=== PATIENT | female | born 1960 | race Caucasian/White ===

== ENCOUNTER → 2017-07-22 | Outpatient (CLI) | payer BC ==
--- NOTE | 2017-07-23 08:57 | MM ---
Reason for exam: screening (asymptomatic). Last mammogram was performed 1 year ago. History: Patient is postmenopausal and had first child at age 32. Benign u/S right breast localization of the right breast, April 13, 2013. Excisional biopsy of the right breast, 1996. Excisional biopsy of the left breast. Physical Findings: A clinical breast exam by your physician is recommended on an annual basis and results should be correlated with mammographic findings. MG Screening Mammo w CAD Bilateral CC and MLO view(s) were taken. Prior study comparison: July 09, 2016, bilateral MG screening mammo w CAD. May 31, 2015, bilateral MG 3d diag mammo w/cad ANGEL. The breast tissue is heterogeneously dense. This may lower the sensitivity of mammography. There are few typically benign round calcifications in the left breast. There is chronic nodularity in the right breast. There is no discrete abnormality. ASSESSMENT: Benign, BI-RAD 2 RECOMMENDATION: Routine screening mammogram of both breasts in 1 year.
== END | disposition home or self-care (01) ==
LOC: RADMAMWWP 16:25
PROVIDERS: ATTEND Family Medicine
DX: Z12.31 Encounter for screening mammogram for malignant neoplasm of breast (principal)

== ENCOUNTER → 2018-07-23 | Outpatient (CLI) | payer BC ==
--- NOTE | 2018-07-24 14:16 | MM ---
Reason for exam: screening (asymptomatic). Last mammogram was performed 1 year ago. History: Patient is postmenopausal and had first child at age 32. Benign u/S right breast localization of the right breast, April 13, 2013. Excisional biopsy of the right breast, 1996. Excisional biopsy of the left breast. Physical Findings: A clinical breast exam by your physician is recommended on an annual basis and results should be correlated with mammographic findings. MG 3D Screening Mammo W/Cad Bilateral CC and MLO view(s) were taken. Prior study comparison: July 22, 2017, bilateral MG screening mammo w CAD. July 09, 2016, bilateral MG screening mammo w CAD. The breast tissue is heterogeneously dense. This may lower the sensitivity of mammography. There is a stable benign appearing oval circumscribed right lower inner quadrant mass. No suspicious abnormality. Left middle depth lateral asymmetry appears similar to 2015. No significant changes when compared with prior studies. ASSESSMENT: Benign, BI-RAD 2 RECOMMENDATION: Routine screening mammogram of both breasts in 1 year.
== END | disposition home or self-care (01) ==
LOC: RADMAMWWP 12:59
PROVIDERS: ATTEND Family Medicine
DX: Z12.31 Encounter for screening mammogram for malignant neoplasm of breast (principal)
CPT/HCPCS: 77063; 77067

== ENCOUNTER → 2018-12-08 | Outpatient (CLI) | payer BC ==
--- NOTE | 2018-12-08 09:24 | CT ---
EXAMINATION TYPE: CT lumbar spine wo con DATE OF EXAM: 12/08/2018 COMPARISON: None HISTORY: 58-year-old female Chronic pain TECHNIQUE: Contiguous axial scanning of the lumbar spine without IV contrast. Coronal and sagittal re constructions performed. The SI joints were included and separately reconstructed in the coronal and sagittal plane. CT DLP: 1318.7 mGycm Automated exposure control for dose reduction was used. FINDINGS: Vertebral body heights are preserved and alignment is maintained. Mild degenerative disc disease with minimal disc height loss and disc bulging throughout. Hypertrophic facet arthropathy mid to lower lumbar spine. No large focal disc herniation or canal compromise seen. Bulging discs at L3-L4 and L4-L5 minimally to mildly narrow the spinal canal. On the right, changes within mild multilevel neuroforaminal narrowing. The left, changes result in mild to moderate neuroforaminal narrowing at L3-L4 and L4-L5 and mild at additional levels. No prevertebral or paravertebral soft tissue abnormality seen. The bilateral SI joints show vacuum phenomenon and mild degenerative spurring. Mild subchondral cysti c changes present on the right. No subarticular regions. IMPRESSION: 1. NO VERTEBRAL COMPRESSION COLLAPSE OR MALALIGNMENT. MILD MULTILEVEL DEGENERATIVE DISC DISEASE WE LL HYPERTROPHIC FACET ARTHROPATHY MID TO LOWER LUMBAR SPINE. 2. MINIMAL TO MILD SPINAL CANAL NARROWING AT L3-L4 AND L4-L5. VARIABLE MILD NEURAL FORAMINAL STENOSES OUTLINED ABOVE, MORE MILD TO MODERATE ON THE LEFT AT L3-L4 AND L4-L5. 3. MILD DEGENERATIVE CHANGE AT THE RIGHT GREATER THAN LEFT SI JOINTS. NO EROSIONS TO SUGGEST AN INFLA MMATORY SACROILIITIS.
== END ==
LOC: RADCTMAIN 08:03
PROVIDERS: ATTEND Family Medicine
DX: M54.9 Dorsalgia, unspecified (principal); G89.29 Other chronic pain; M12.9 Arthropathy, unspecified; M48.061 Spinal stenosis, lumbar region without neurogenic claudication; M47.9 Spondylosis, unspecified
CPT/HCPCS: 72131

== ENCOUNTER → 2019-08-19 | Outpatient (CLI) | payer BC ==
--- NOTE | 2019-08-23 08:59 | MM ---
Reason for exam: screening (asymptomatic). Last mammogram was performed 1 year and 1 month ago. History: Patient is postmenopausal and had first child at age 32. Benign u/S right breast localization of the right breast, April 13, 2013. Excisional biopsy of the right breast, 1996. Excisional biopsy of the left breast. Physical Findings: A clinical breast exam by your physician is recommended on an annual basis and results should be correlated with mammographic findings. MG 3D Screening Mammo W/Cad Bilateral CC and MLO view(s) were taken. Prior study comparison: July 23, 2018, bilateral MG 3d screening mammo w/cad. July 22, 2017, bilateral MG screening mammo w CAD. There are scattered fibroglandular densities. There is chronic nodularity in the right breast. Scar markers on bilateral breasts. No significant changes when compared with prior studies. ASSESSMENT: Benign, BI-RAD 2 RECOMMENDATION: Routine screening mammogram of both breasts in 1 year.
== END | disposition home or self-care (01) ==
LOC: RADMAMWWP 14:44
PROVIDERS: ATTEND Family Medicine
DX: Z12.31 Encounter for screening mammogram for malignant neoplasm of breast (principal)
CPT/HCPCS: 77063; 77067

== ENCOUNTER → 2019-08-23 | Outpatient (CLI) | payer BC ==
[2019-08-23 13:04] VITALS: BP 125/83; PULSE 63; RESP 16
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
== END | disposition home or self-care (01) ==
LOC: PNWHC3 12:23
PROVIDERS: ATTEND Anesthesiology
DX: M48.061 Spinal stenosis, lumbar region without neurogenic claudication (principal); M51.16 Intervertebral disc disorders with radiculopathy, lumbar region; Z79.1 Long term (current) use of non-steroidal anti-inflammatories (NSAID); Z79.899 Other long term (current) drug therapy
CPT/HCPCS: 99211

== ENCOUNTER 2019-09-29 08:38 | Day surgery (SDC) | payer BC ==
[2019-09-27 15:59] VITALS: BMI 34.0
[~2019-09-29 08:38] MED LIST: LACTATED RINGERS 1,000 ML IV SCH
[2019-09-29 08:56] VITALS: TEMP 97.3
[2019-09-29] MEDS ORDERED: LACTATED RINGERS 1,000 ML IV ONE (08:57)
[2019-09-29] MEDS ORDERED: LIDOCAINE 1% 20 ML VIAL (10MG/ML) FOR IV START INTRADERMA ONE (08:58)
[2019-09-29] MEDS ORDERED: MIDAZOLAM 2 MG/2 ML VIAL ONE (09:56)
[2019-09-29] MEDS ORDERED: fentaNYL (PF) 50 MCG/ML 2 ML AMP ONE (09:56)
[2019-09-29] MEDS ORDERED: methylPREDNISolone ACETATE 80 MG/ML 1 ML VIAL ONE (09:56)
[2019-09-29] MEDS ORDERED: IOPAMIDOL M200 10 ML VIAL ONE (09:56)
--- NOTE | 2019-09-29 10:19 | P.PCN ---
Date of Procedure: 09/29/19 Procedure(s) Performed: PREOPERATIVE DIAGNOSIS: Lumbar radiculopathy. Lumbar degenerative disc disease. Lumbar foraminal stenosis. POSTOPERATIVE DIAGNOSIS: Same as preop diagnosis. PROCEDURE 1. Transforaminal epidural steroid injection under fluoroscopic guidance at L3-4 bilateral (Fluoroscopy images stored on file in the radiology Department ) 2. Lumbar epidurogram : ANESTHESIA: Local with 1% lidocaine 3 ml , moderate sedation with intravenous Versed 2 mg and fentanyle 100 micrograms EBL: Minimal PROCEDURE INDICATION: The patient with low back pain and radiculopathy symptoms unresponsive to conservative treatment. PROCEDURE DESCRIPTION / TECHNIQUE: The patient was seen and identified in the preoperative area. Risks, benefits, complications, and alternatives were discussed with the patient. The patient agreed to proceed with the procedure and signed the consent. IV was started, and vital signs were stable. Patient was taken to the OR and time out was completed. The patient was placed in the prone position on procedure table and a pillow was placed under the abdomen to reduce lumbar lordosis. The lumbosacral area was prepped and draped in the usual sterile fashion. Critical pause was taken. Vital signs were closely monitored during the procedure. Conscious sedation was used during the procedure to decrease patient s anxiety. Using oblique fluoroscopy, the chin of the ``Minor dog at right L3-4 level was identified, and the skin and deeper tissues just below was localized with 1% lidocaine. Subsequently, a 22-gauge 3.5-inch spinal needle was advanced under a tunneled view fluoroscopic guidance just underneath the chin of the ``Minor dog at the right L3-4 . Under lateral fluoroscopy, the needle was then advanced to the posterior border of the right L3 4 interforaminal space. After negative aspiration of CSF and blood and with no paresthesias, 1 mL Isovue 200 contrast dye was injected excellent epidurogram and outlining of the nerve root Subsequently, then the block solution containing 40 mg Depo-medrol and 1 mL of Lidocaine 1% was injected. Needle was removed and the same procedure was repeated at the left L3-4 level (s). At the end of the procedure, skin was cleansed, and bandages were applied. COMPLICATIONS:none DISPOSITION / PLANS: The patient was placed in a supine position and transferred to the recovery area in a stable condition for observation. There was no evidence of lower extremity motor or sensory deficit after the procedure. Patient was discharged from the recovery room after meeting discharge criteria. Home discharge instructions were given to the patient by the staff. The patient was reexamined prior to discharge.
[2019-09-29] MEDS ORDERED: IV FLUID CONTINUATION 1,000 ML IV ONE ×2 (10:21)
[2019-09-29 10:24] VITALS: RESP 16
--- NOTE | 2019-09-29 10:38 | FL ---
EXAMINATION TYPE: FL guided pain mgmt statistic DATE OF EXAM: 09/29/2019 HISTORY: Pain Lion lumbar transforaminal epidural steroid injection. 8 sec fl. 2 images scanned
[2019-09-29 10:42] VITALS: BP 106/70; PULSE 58
== END 2019-09-29 11:16 | disposition home or self-care (01) ==
LOC: ORPAIN 08:38
PROVIDERS: ATTEND Specialist
DX: M51.16 Intervertebral disc disorders with radiculopathy, lumbar region (principal); M48.061 Spinal stenosis, lumbar region without neurogenic claudication; Z78.0 Asymptomatic menopausal state
CPT/HCPCS: 64483; J2250; J1040; J3010; Q9966; 99152

== ENCOUNTER 2020-08-23 08:47 | Day surgery (SDC) | payer BC ==
[2020-08-21 09:42] VITALS: BMI 33.6
[~2020-08-23 08:47] MED LIST changes: +LIDOCAINE 1% (10MG/ML) FOR IV START INTRADERMA PRN
[2020-08-23 09:17] VITALS: RESP 16; TEMP 96.7
[2020-08-23] MEDS ORDERED: PROPOFOL 10 MG/ML 20 ML VIAL IV ONE (09:57)
--- NOTE | 2020-08-23 10:09 | P.PCN ---
Date of Procedure: 08/23/20 Procedure(s) Performed: BRIEF HISTORY: Patient is a 60-year-old pleasant white female scheduled for an elective colonoscopy as a part of screening for colon rectal neoplasia. His family history of colon cancer diagnosed in a paternal uncle at age 70. PROCEDURE PERFORMED: Colonoscopy snare polypectomy. PREOPERATIVE DIAGNOSIS: Screening for colon cancer and family history of colon cancer. IV sedation per Anesthesia. PROCEDURE: After informed consent was obtained, the patient, was brought into the endoscopy unit. IV sedation was administered by Anesthesia under continuous monitoring. Digital rectal examination was normal. Initially the Olympus CF-160 flexible video colonoscope was then inserted in the rectum, gradually advanced into the cecum without any difficulty. Careful examination was performed as the scope was gradually being withdrawn. Ileocecal valve and the appendiceal orifice were visualized and appeared normal. Prep was excellent. Mucosa of the cecum, ascending colon appeared normal. The transverse colon there was a 2 cm broad- based polyp removed by snare polypectomy. Rest of the, transverse colon, descending colon, sigmoid colon, and rectum appeared normal. Retroflexion was performed in the rectum and no lesions were seen. The patient tolerated the procedure well. IMPRESSION: 2 cm broad-based proximal transverse colon polyp status post snare polypectomy Rest of the colon appeared normal. RECOMMENDATIONS: Findings of this examination were discussed with the patient as well as a family. She was advised to follow with the biopsy sites. If the biopsy shows an adenoma she can have a repeat colonoscopy in 3 years..
[2020-08-23 10:28] VITALS: BP 115/74; PULSE 60
== END 2020-08-23 10:42 | disposition home or self-care (01) ==
LOC: ORWHC2ENDO 08:47
PROVIDERS: ATTEND Internal Medicine Gastroenterology
DX: Z12.11 Encounter for screening for malignant neoplasm of colon (principal); D12.3 Benign neoplasm of transverse colon; M54.30 Sciatica, unspecified side; R51.9 Headache, unspecified; Z80.0 Family history of malignant neoplasm of digestive organs; Z79.899 Other long term (current) drug therapy; Z79.1 Long term (current) use of non-steroidal anti-inflammatories (NSAID); Z98.890 Other specified postprocedural states; Z90.89 Acquired absence of other organs; Z84.89 Family history of other specified conditions
CPT/HCPCS: 88305; 45385; J2704

== ENCOUNTER → 2020-10-30 | Outpatient (CLI) | payer BC ==
--- NOTE | 2020-11-01 14:11 | MM ---
Reason for exam: screening (asymptomatic). Last mammogram was performed 1 year and 2 months ago. History: Patient is postmenopausal and had first child at age 32. Benign u/S right breast localization of the right breast, April 13, 2013. Excisional biopsy of the right breast, 1996. Excisional biopsy of the left breast. Took hormonal contraceptives for 20 years. Physical Findings: A clinical breast exam by your physician is recommended on an annual basis and results should be correlated with mammographic findings. MG 3D Screening Mammo W/Cad Bilateral CC and MLO view(s) were taken. Prior study comparison: August 19, 2019, bilateral MG 3d screening mammo w/cad. July 23, 2018, bilateral MG 3d screening mammo w/cad. There are scattered fibroglandular densities. Focal asymmetry right breast 6 o'clock, stable. No significant changes when compared with prior studies. ASSESSMENT: Benign, BI-RAD 2 RECOMMENDATION: Routine screening mammogram of both breasts in 1 year.
== END | disposition home or self-care (01) ==
LOC: RADMAMWWP 10:31
PROVIDERS: ATTEND Family Medicine
DX: Z12.31 Encounter for screening mammogram for malignant neoplasm of breast (principal)
CPT/HCPCS: 77063; 77067

== ENCOUNTER → 2021-12-25 | Outpatient (CLI) | payer BC ==
--- NOTE | 2021-12-26 11:33 | US ---
EXAMINATION TYPE: US transvaginal DATE OF EXAM: 12/25/2021 COMPARISON: US 2016 CLINICAL HISTORY: D25.9 LEIOMYOMA OF UTERUS, UNSPECIFIED. History of fibroids, 1, para 1 TECHNIQUE: Transvaginal exam only per ordering physician Date of LMP: 2012 EXAM MEASUREMENTS: Uterus: 5.4 x 3.1 x 4.1 cm Endometrial Stripe: 0.2 cm Right Ovary: not seen Left Ovary: not seen 1. Uterus: retroverted, multiple fibroids and calcifications with largest measuring 1.9 x 1.5 x 1.6c m 2. Endometrium: wnl 3. Right Ovary: not seen 4. Left Ovary: not seen 5. Bilateral Adnexa: wnl 6. Posterior cul-de-sac: 3.8 x 2.5 x 3.3cm cystic area posterior to cervix IMPRESSION: 1. Anechoic fluid type structure posterior within the cul-de-sac. Free fluid and cyst are within the differential. This may be an adnexal cyst posterior to the uterus. Consider follow-up CT pelvis for a dditional delineation. 2. Multiple uterine fibroids.
== END | disposition home or self-care (01) ==
LOC: RADUSWWP 15:28
PROVIDERS: ATTEND Family Medicine
DX: D25.9 Leiomyoma of uterus, unspecified (principal)
CPT/HCPCS: 76830

== ENCOUNTER → 2022-02-07 | Outpatient (CLI) | payer BC ==
[2022-02-07 09:35] VITALS: BP 125/79; PULSE 77; RESP 18
--- NOTE | 2022-02-07 09:43 | P.PAINPG ---
PQRS Measure Charge Sheet Comment: A 61 yr old female as a referral from Dr. Wheeler presents today with a history of severe and chronic jose secondary to lumbar degenerative disc diseases and spondylosis with facet arthropathy presents today for an evaluation. Pain level is currently at 3 out of 10 in intensity, constant, dull/ achy in the mid aspect of her lumbar spine with sharp pain towards the BL hips. Pain is provoked as high as 8/10 in intensity with walking for periods of 20 min or more. Pain is alleviated with medications (Lyrica), +CBD gummies, topicals, injections in the past, ice, heat, PT in Mar 2019, TENS unit use in PT, massage therapy once a month, reclining and rest. PMH: MDD, Peripheral Neuropathy, UI PSH: BL TFESI L3-L4, Breast Biopsy, Tonsillectomy SH: Negative x 3 FH: Fa- HTN/ Parkinsons. Ma- Alzheimers. MGM- CAD. PGM- CAD. PGF- CAD/ Alzheimers. All: NKDA Meds: See list Interventional pain procedures completed include BL TFESI L3-L4 Patient is currently on Lyrica Patient denies any side effects of the medication(s), denies excessive drowsiness or sleepiness, denies suicidal ideation and reports that the current pain medication is helping to control the pain and improve activities of daily living. Patient denies any motor or sensory deficits. Patient denies any fever or night sweats, denies any change in the bowel movements or urination. Physical Examination: -Constitutional: Cooperative. Not in acute distress . - Neurologic: Cranial nerve II to XII intact. No focal neurological deficits. - Psychatric: Alert & oriented x 3. Matching mood & appropriate affect. Judgment and insight intact. - Musculoskeletal: Cervical spine: Muscle bulk/ tone/ strength in the bilateral upper extremities normal Vertebral body tenderness to palpation over Spurling test positive Distraction test positive Facet loading test positive Thoracic spine Muscle bulk / tone/ strength in the bilateral paraspinal muscles normal Vertebral body tender to palpation over Facet loading test positive Lumbar spine: Motor bulk/ tone/ strength lower extremities , thigh and legs : 5/5 Deep tendon reflexes : Normal Knee Jerk. Normal Ankle Jerk . Vertebral body tenderness to palpation over L3, L4 Lumbar Facet Loading Test positive Straight Leg Raise: positive at 30 degrees right side/ left side Gaenslen's Test positive Sacral spine : Severe tenderness over the Sacroiliac joint: right side / left side Range of motion: Flexion of the lumbar spine <60 degrees Range of motion: Extension of the lumbar spine <20 degrees Gaenslen's Test positive Tolu's Test positive Ruby test: positive right side / left side Thigh Thrust Test Sacral Thrust Test Assessment and plan: Chronic back pain secondary to lumbar degenerative disc disease , spondylosis with facet arthropathy without myelopathy Recommendation of completion of MRI without contrast of the lumbar spine, scheduled 02/27/22, then follow up thereafter. All patient questions answered I have spent less than 30 minutes on patient care today. Dr Persaud was available by phone for the evaluation of this patient. The time was used to review the medical records including relevant urine studies and Prescription history (MAPs), review of the available imaging, evaluation and examination of the patient, coordination of care with the medical staff and if applicable referring physicians, as well as creation of the medical record - Pain Location Lower Back Non-Pharmacological Interventions: Heat, Home Exercise, Ice, Inactivity, Massage, Physical Therapy, Position/Reposition, Stretching Pharmacological Interventions: Epidural, PRN Medication, Scheduled Medication, Topical Medication PQRS Narrative: Smoking Status Never smoker Hx Alcohol Use (MH) No Home Medications: Ambulatory Orders Calcium 1200mg-Vitamin D3 1000iu 1 tab PO DAILY 05/01/16 Cholecalciferol [Vitamin D3] 4,000 unit PO DAILY 05/01/16 Multivitamins, Thera [Multivitamin] 1 tab PO DAILY 05/01/16 Oxybutynin Chloride [Oxybutynin Chloride ER] 10 mg PO DAILY 05/01/16 Acetaminophen [Tylenol] 325 - 650 mg PO Q4H PRN 08/19/19 Naproxen Sodium [Aleve] 220 mg PO Q6H PRN 08/19/19 Niacin 250 mg PO DAILY 08/19/19 SUMAtriptan succinate [Imitrex] 100 mg PO DIRECTED PRN 08/19/19 buPROPion HCL [buPROPion HCL SR] 150 mg PO DAILY 08/19/19 valACYclovir HCL [Valacyclovir] 1,000 mg PO DIRECTED PRN 08/19/19 FLUoxetine HCL [PROzac] 20 mg PO DAILY 09/27/19 Zzzquil 1 tab PO DAILY 08/21/20 Controlled Substance Measures - Controlled Substance Measures Is patient prescribed a controlled substance at discharge?: No
== END ==
LOC: PNWHC3 09:00
PROVIDERS: ATTEND Specialist
DX: M50.10 Cervical disc disorder with radiculopathy, unspecified cervical region (principal); M51.36 Other intervertebral disc degeneration, lumbar region; M47.816 Spondylosis without myelopathy or radiculopathy, lumbar region; G89.29 Other chronic pain; Z88.6 Allergy status to analgesic agent
CPT/HCPCS: 99211

== ENCOUNTER → 2022-02-26 | Outpatient (CLI) | payer BC ==
--- NOTE | 2022-02-27 05:25 | MR ---
EXAMINATION TYPE: MR cervical spine wo con DATE OF EXAM: 02/26/2022 COMPARISON: None HISTORY: Neck pain, BUE numbness, headaches. Multiplanar multiecho imaging of the cervical spine with no contrast. There is straightening of the cervical spine and slight kyphotic curvature. There is degenerative dis c space narrowing C4-T1 level. There is small posterior disc herniations C4-T1 level. No significant spinal stenosis. Spinal canal measures 7 mm at the narrowest point which is C5-6. Cervical spinal cor d shows no edema. The brainstem is intact. Facet joints are intact. There is hypertrophic multilevel mild facet arthropathy. IMPRESSION: Multilevel spondylotic changes and mild kyphotic deformity. No fracture seen. Multilevel posterior en dplate spurring and disc bulging without significant spinal stenosis.
== END | disposition home or self-care (01) ==
LOC: RADMRIMAIN 18:30
PROVIDERS: ATTEND Nurse Practitioner Adult Health
DX: M47.812 Spondylosis without myelopathy or radiculopathy, cervical region (principal); M50.10 Cervical disc disorder with radiculopathy, unspecified cervical region
CPT/HCPCS: 72141

== ENCOUNTER → 2022-03-07 | Outpatient (CLI) | payer BC ==
[2022-03-07 13:25] VITALS: BP 124/81; PULSE 69; RESP 16
--- NOTE | 2022-03-07 13:38 | P.PN ---
Subjective Progress Note Date: 03/07/22 Since follow visit for this 61 years old female with a history of chronic severe neck pain and low back pain, patient here today for follow-up visit to discuss the results of the MRI of the cervical spine, which was done recently at [facility], patient reported that she had severe neck pain with radiation to the upper extremity associated with numbness and tingling sensation in her hands bilaterally, symptoms increased gradually during the daytime until at night when she feels severe numbness and tingling sensation, she feels occasional weakness in the upper extremity but she is able to use her hands, difficulty, denies any fever or night sweats she denies any change in the bowel movement. Urination, she is currently using naproxen when necessary with minimal benefit, so patient complaining of severe low back pain with radiation to the lower extremity, the pain in the low back area that is increased with any activity Objective - Vital Signs Vital signs: Vital Signs Temp Pulse 69 03/07/22 13:20 Resp 16 03/07/22 13:20 BP 124/81 03/07/22 13:20 Pulse Ox 95 03/07/22 13:20 FiO2 - Exam Physical Examinations : -Constitutiona : Cooperative , not in acute distress . -HEENT : nech : supple , no Lymphadenopathy , normal thyroid size . : eyes : no ptosis , no icterus, no photophobia . - neurologic : Cranial nerve II to XII intact , no focal neurological deffecit . -psychatric : alert , oriented X 3 , appropriate affect , intact judgment and insight . -Lymphatic : no Lymphadenopathy . - musculoskeltal : Cervical Spine motor stregnth in the deltoid and biceps, normal right side , normal Left side motor stregnth biceps and the wrist extensors normal right side ,normal left side . motor stregnth in the triceps muscle . normal Right side , normal Left side deep tendon reflexes normal at the biceps , normal at Brachioradialis , normal at triceps. cervical facet loading test: Positive Bilaterally Spurling test= positive Right , positive left. Neck distraction test= positive Right , positive left. Noel sign= positive right, positive left . Lumber spine moter stegnth lower extremities ,thigh and legs 5/5 Right side , 5/5 Left side deep tendon reflexes : normal Knee Jerk , normal ankle Jerk lumber facet Loading Test =positive Right , positive Left Range of motion of the lumbar spine Flexion 30 degrees, extension 10 degrees strait leg raising test = positive at 45 degree Fabere test= positive Right , and positive LT . Sever tenderness over the Sacroiliac joint on the Right , and Left sides MRI of the cervical spine= multilevel cervical degenerative disc disease and multilevel foraminal stenosis multilevel facet arthropathy Assessment and Plan Plan: Assessment and plan= 1-cervical radiculopathy. 2-cervical degenerative disc disease. 3-cervical spondylosis with cervical facet arthropathy. 4-lumbar spondylosis with lumbar facet arthropathy. 5-lumbar degenerative disc disease. Description could benefit from cervical collar. Benefit from cervical epidural steroid injection at C6 7 levels Time with Patient: Less than 30
== END ==
LOC: PNWHC3 12:31
PROVIDERS: ATTEND Specialist
DX: M47.22 Other spondylosis with radiculopathy, cervical region (principal); M50.10 Cervical disc disorder with radiculopathy, unspecified cervical region; M51.36 Other intervertebral disc degeneration, lumbar region; M47.816 Spondylosis without myelopathy or radiculopathy, lumbar region; Z88.8 Allergy status to other drugs, medicaments and biological substances
CPT/HCPCS: 99211

== ENCOUNTER 2022-04-25 11:13 | Day surgery (SDC) | payer BC ==
[2022-04-23 12:52] VITALS: BMI 33.6
[2022-04-25 11:41] VITALS: TEMP 97.8
[2022-04-25] MEDS ORDERED: LACTATED RINGERS 1,000 ML IV ONE (11:41)
[2022-04-25] MEDS ORDERED: fentaNYL (PF) 50 MCG/ML 2 ML AMP ONE (12:09)
[2022-04-25] MEDS ORDERED: MIDAZOLAM 2 MG/2 ML VIAL ONE (12:09)
[2022-04-25] MEDS ORDERED: DEXAMETHASONE SOD PHOSPHATE 10 MG/ML 1 ML VIAL ONE (12:09)
[2022-04-25] MEDS ORDERED: IOPAMIDOL M200 10 ML VIAL ONE (12:09)
--- NOTE | 2022-04-25 12:23 | P.PCN ---
Date of Procedure: 04/25/22 Procedure(s) Performed: . PROCEDURE 1. Cervical epidural steroid injection under fluoroscopic guidance, C6-7 (fluoroscopy images available in the radiology department ) 2. Cervical epidurogram. PREOPERATIVE DIAGNOSIS: 1- Cervical Degenerative Disc Diseases 2- Cervical radiculopathy., 3-cervical spondylosis with cervical Facet arthropathy without myelopathy.4-cervical spinal stenosis POSTOPERATIVE DIAGNOSIS: : 1- Cervical Degenerative Disc Diseases , 2- Cervical radiculopathy. 3-,cervical spondylosis with cervical Facet arthropathy without myelopathy. 4-cervical spinal stenosis ANESTHESIA: moderate sedation, with Versed 2 mg and Fentanyl 50 mcg. Sedation start time : 1214 Sedation end time : 1220 EBL 0 PROCEDURE INDICATION: The patient with neck pain and radiculitis unresponsive to conservative treatment consents for procedure. PROCEDURE DESCRIPTION / TECHNIQUE: The patient was seen and identified in the preoperative area. Risks, benefits, complications, including but not limited to infections ,bleeding , allergic reactions to the medications ,and not complete pain releife, and alternatives were discussed with the patient, the patient agreed to proceed with the procedure and signed the consent. Patient was taken to the OR and time out was completed. The patient was placed in the prone position on the procedure table. A pillow was placed under the patients chest to increase the cervical interlaminar space. The cervical area was prepped and draped in the usual sterile fashion. Vital signs were closely monitored during the procedure. Conscious sedation was used during the procedure to decrease patients anxiety. Using anterior-posterior fluoroscopy, the C6-7 interlaminar space was identified and the skin over this site was marked and then infiltrated with 1% lidocaine subcutaneously. Subsequently, a 20-gauge 3-1/2-inch Tuohy epidural needle was inserted and advanced toward the epidural space by means of the ``hanging-drop technique and guided by AP and lateral fluoroscopy. The correct needle position in the epidural space was verified with the injection of 2 mL of the water soluble contrast dye Isovue-200 and observing an excellent epidurogram with the epidural spread of the dye, after negative aspiration for blood and CSF and in the absence of paresthesias. then, mixture containing 20 mg Dexamethasone and 2 ml of preservative-free normal saline injected and a washout of epidurogram was seen. Needle was withdrawn intact, skin was cleansed, and bandages were applied. Complications= none. Disposition= patient was placed in supine position and transferred to the recovery room area in stable condition and there was no evidence of upper or lower extremity motor or sensory deficit after the procedure patient was discharged from recovery room after discharge criteria met and home discharge instructions was given by the staff and patient will follow with the pain clinic in 2-4 weeks
[2022-04-25] MEDS ORDERED: IV FLUID CONTINUATION 1,000 ML IV ONE (12:26)
--- NOTE | 2022-04-25 12:30 | FL ---
EXAMINATION TYPE: FL guided pain mgmt statistic DATE OF EXAM: 04/25/2022 FLUOROSCOPY Fluoroscopy time of 2 seconds was used during cervical epidural steroid injection. 1 image/s documen t/s the procedure.
[2022-04-25 13:00] VITALS: BP 112/73; PULSE 58; RESP 20
== END 2022-04-25 12:56 | disposition home or self-care (01) ==
LOC: ORPAIN 11:13
PROVIDERS: ATTEND Specialist
DX: M50.123 Cervical disc disorder at C6-C7 level with radiculopathy (principal); M48.02 Spinal stenosis, cervical region; M47.22 Other spondylosis with radiculopathy, cervical region; Z88.9 Allergy status to unspecified drugs, medicaments and biological substances
CPT/HCPCS: 62321; J2250; J1100; J3010; Q9966

== ENCOUNTER → 2022-05-23 | Outpatient (CLI) | payer BC ==
[2022-05-23 09:37] VITALS: BP 121/74; PULSE 71; RESP 18
--- NOTE | 2022-05-23 13:01 | P.PAINPG ---
PQRS Measure Charge Sheet Comment: A 62 yr old female with a history of severe and chronic neck & low back pain secondary to cervcial & lumbar degenerative disc diseases and spondylosis with facet arthropathy without myelopathy presents today for evaluation s/p IEK C6- C7. Pt states she experienced 80% pain relief x 4 wks s/p procedure. Pain level is currently at 6 /10 in intensity, constant, localized in the lower lumbar spine, dull in character w shooting towards the BLEs. Pain is provoked by climbing stairs. Pain is alleviated with medications (Lyrica), topicals, injections, ice, heat, PT years ago, massage therapy monthly, aqua therapy at the [facility], repositioning and rest. Interventional pain procedures completed include IKE C6-C7 x1. Patient is currently on Lyrica Patient denies any side effects of the medication(s), denies excessive drowsiness or sleepiness, denies suicidal ideation and reports that the current pain medication is helping to control the pain and improve activities of daily living. Patient denies any motor or sensory deficits. Patient denies any fever or night sweats, denies any change in the bowel movements or urination. Physical Examination: -Constitutional: Cooperative. Not in acute distress . - Neurologic: Cranial nerve II to XII intact. No focal neurological deficits. - Psychatric: Alert & oriented x 3. Matching mood & appropriate affect. Judgment and insight intact. - Musculoskeletal: Cervical spine: Muscle bulk/ tone/ strength in the bilateral upper extremities normal Vertebral body tenderness to palpation over Spurling test positive Distraction test positive Facet loading test positive Thoracic spine Muscle bulk / tone/ strength in the bilateral paraspinal muscles normal Vertebral body tender to palpation over Facet loading test positive Lumbar spine: Motor bulk/ tone/ strength lower extremities , thigh and legs : 5/5 Deep tendon reflexes : Normal Knee Jerk. Normal Ankle Jerk . Vertebral body tenderness to palpation over L4, L5 Lumbar Facet Loading Test positive Straight Leg Raise: positive at 30 degrees right side/ left side Gaenslen's Test positive Sacral spine : Severe tenderness over the Sacroiliac joint: right side / left side Range of motion: Flexion of the lumbar spine <60 degrees Range of motion: Extension of the lumbar spine <20 degrees Gaenslen's Test positive Tolu's Test positive Ruby test: positive right side / left side Thigh Thrust Test Sacral Thrust Test Assessment and plan: Chronic neck & low back pain secondary to cervical & lumbar degenerative disc disease, spondylosis with facet arthropathy without myelopathy Recommendation of MRI without contrast of the lumbar spine re: M51.36 May return to this clinic within 2 wks for a re evaluation. Risks, benefits of procedure discussed and pt verbalized understanding. Denies anticoagulant use or medical history of diabetes. All patient questions answered I have spent less than 30 minutes on patient care today. Dr Persaud was available by phone for the evaluation of this patient. The time was used to review the medical records including relevant urine studies and Prescription history (MAPs), review of the available imaging, evaluation and examination of the patient, coordination of care with the medical staff and if applicable referring physicians, as well as creation of the medical record PQRS Narrative: Smoking Status Never smoker Hx Alcohol Use (MH) No Home Medications: Ambulatory Orders Calcium 1200mg-Vitamin D3 1000iu 1 tab PO DAILY 05/01/16 Cholecalciferol [Vitamin D3] 4,000 unit PO DAILY 05/01/16 Multivitamins, Thera [Multivitamin] 1 tab PO DAILY 05/01/16 Oxybutynin Chloride [Oxybutynin Chloride ER] 10 mg PO DAILY 05/01/16 Acetaminophen [Tylenol] 325 - 650 mg PO Q4H PRN 08/19/19 Naproxen Sodium [Aleve] 220 mg PO Q6H PRN 08/19/19 Niacin 250 mg PO DAILY 08/19/19 SUMAtriptan succinate [Imitrex] 100 mg PO DIRECTED PRN 08/19/19 buPROPion HCL [buPROPion HCL SR] 150 mg PO DAILY 08/19/19 valACYclovir HCL [Valacyclovir] 1,000 mg PO DIRECTED PRN 08/19/19 FLUoxetine HCL [PROzac] 20 mg PO DAILY 09/27/19 Zzzquil 1 tab PO DAILY 08/21/20 Pregabalin 100 mg PO HS 04/23/22 Controlled Substance Measures - Controlled Substance Measures Is patient prescribed a controlled substance at discharge?: No
== END ==
LOC: PNWHC3 09:12
PROVIDERS: ATTEND Specialist
DX: M50.30 Other cervical disc degeneration, unspecified cervical region (principal); G89.29 Other chronic pain; M51.36 Other intervertebral disc degeneration, lumbar region; M47.816 Spondylosis without myelopathy or radiculopathy, lumbar region; M47.812 Spondylosis without myelopathy or radiculopathy, cervical region; Z88.8 Allergy status to other drugs, medicaments and biological substances
CPT/HCPCS: 99211

== ENCOUNTER → 2022-06-25 | Outpatient (CLI) | payer BC ==
--- NOTE | 2022-06-26 09:59 | MR ---
EXAMINATION TYPE: MR lumbar spine wo con DATE OF EXAM: 06/25/2022 COMPARISON: NONE HISTORY: Lowback pain that radiates down legs to feet TECHNIQUE: T1 and T2 axial and sagittal images of the lumbar spine are submitted. FINDINGS: There is no abnormal signal seen within the visualized spinal cord or paraspinal soft tissu es. Abnormal signal within the vertebral segments may represent a hemangioma. At L1-2 there is no disc herniation or canal stenosis. The signal . No foraminal encroachment At L2-3 there is mild disc desiccation and hypertrophic change since. No disc herniation or canal ousmane nosis. No foraminal approach. At L3-4 there is mild to moderate degenerative disc disease with broad-based disc bulging. Minimal an terior listhesis with more advanced facet arthropathy. Ligamentum flavum hypertrophy. There is BE art ifact along the right spinal canal indeterminate etiology. No canal stenosis. Neural foramina are elena ntained. At L4-5 there is disc desiccation with advanced facet arthropathy and mild circumferential disc bulgi ng. Neural foramina remain patent with very mild encroachment. No canal stenosis. At L5-S1 there is facet arthropathy with no disc herniation or canal stenosis. No foraminal encroachm ent. IMPRESSION: 1. Multilevel [id number] degenerative disc disease with more advanced facet arthropathy at mult iple levels. There is a slight anterolisthesis of L3 on L4. 2. No discrete herniation or canal stenosis. 3. Cystic structure partially included in the field of view with area of lower signal along its upper margin should be further evaluated with pelvic ultrasound to include the bladder.
== END | disposition home or self-care (01) ==
LOC: RADMRIMAIN 08:25
PROVIDERS: ATTEND Specialist
DX: M51.36 Other intervertebral disc degeneration, lumbar region (principal); M47.816 Spondylosis without myelopathy or radiculopathy, lumbar region; M43.16 Spondylolisthesis, lumbar region
CPT/HCPCS: 72148

== ENCOUNTER → 2022-07-01 | Outpatient (CLI) | payer BC ==
[2022-07-01 12:49] VITALS: BP 171/75; PULSE 62; RESP 18; TEMP 98.1
--- NOTE | 2022-07-01 15:37 | P.PAINPG ---
PQRS Measure Charge Sheet Comment: A 62 yr old female with a history of severe and chronic low back pain x 4 yrs secondary to lumbar DDD and spondylosis with facet arthropathy without myelopathy presents today for MRI lumbar spine results. Pain level is currently at 7/10 in intensity, constant, localized in the lower lumbar spine, sharp in character w shooting towards the BL flanks and BLEs. Pain is provoked by over activity at the [employer] and climbing steps. Pain is alleviated with home exercise regimen as tolerated, PT in 2019, massage therapy monthly, heat, ice, meds (Lyrica, Aleve OTC), topicals, reclining and rest. Interventional pain procedures completed include ADEEL C6-7 Patient is currently on Lyrica, Aleve OTC Patient denies any side effects of the medication(s), denies excessive drowsiness or sleepiness, denies suicidal ideation and reports that the current pain medication is helping to control the pain and improve activities of daily living. Patient denies any motor or sensory deficits. Patient denies any fever or night sweats, denies any change in the bowel movements or urination. Physical Examination: -Constitutional: Cooperative. Not in acute distress . - Neurologic: Cranial nerve II to XII intact. No focal neurological deficits. - Psychatric: Alert & oriented x 3. Matching mood & appropriate affect. Judgmen t and insight intact. - Musculoskeletal: Cervical spine: Muscle bulk/ tone/ strength in the bilateral upper extremities normal Vertebral body tenderness to palpation over Spurling test positive Distraction test positive Facet loading test positive Thoracic spine Muscle bulk / tone/ strength in the bilateral paraspinal muscles normal Vertebral body tender to palpation over Facet loading test positive Lumbar spine: Motor bulk/ tone/ strength lower extremities , thigh and legs : 5/5 Deep tendon reflexes : Normal Knee Jerk. Normal Ankle Jerk . Vertebral body tenderness to palpation over L4 Lumbar Facet Loading Test positive Straight Leg Raise: positive at 30 degrees right side/ left side Gaenslen's Test positive Sacral spine : Severe tenderness over the Sacroiliac joint: right side / left side Range of motion: Flexion of the lumbar spine <60 degrees Range of motion: Extension of the lumbar spine <20 degrees Gaenslen's Test positive Ruby test: positive right side / left side Thigh Thrust Test Sacral Thrust Test Imaging: MRI without contrast of the lumbar spine from 06/25/22 reviewed Assessment and plan: Chronic low back pain secondary to lumbar degenerative disc disease, spondylosis with facet arthropathy without myelopathy Recommendation of IKE L4-L5. May need a series of injections, up to 3 within a 6 mo period, for optimal pain relief. Risks, benefits of procedure discussed and pt verbalized understanding. Admits to anticoagulant use or medical history of diabetes. Protocol for discontinuation/ continuation of medications vern procedure discussed. All patient questions answered I have spent less than 30 minutes on patient care today. Dr Persaud was available by phone for the evaluation of this patient. The time was used to review the medical records including relevant urine studies and Prescription history (MAPs), review of the available imaging, evaluation and examination of the patient, coordination of care with the medical staff and if applicable referring physicians, as well as creation of the medical record - Pain Location Bilateral Lower Back Non-Pharmacological Interventions: Heat, Home Exercise, Ice, Inactivity, Massage, Stretching Pharmacological Interventions: PRN Medication, Scheduled Medication, Topical Medication PQRS Narrative: Smoking Status Never smoker Hx Alcohol Use (MH) No Home Medications: Ambulatory Orders Calcium 1200mg-Vitamin D3 1000iu 1 tab PO DAILY 05/01/16 Cholecalciferol [Vitamin D3] 4,000 unit PO DAILY 05/01/16 Multivitamins, Thera [Multivitamin] 1 tab PO DAILY 05/01/16 Oxybutynin Chloride [Oxybutynin Chloride ER] 10 mg PO DAILY 05/01/16 Acetaminophen [Tylenol] 325 - 650 mg PO Q4H PRN 08/19/19 Naproxen Sodium [Aleve] 220 mg PO Q6H PRN 08/19/19 Niacin 250 mg PO DAILY 08/19/19 SUMAtriptan succinate [Imitrex] 100 mg PO DIRECTED PRN 08/19/19 buPROPion HCL [buPROPion HCL SR] 150 mg PO DAILY 08/19/19 valACYclovir HCL [Valacyclovir] 1,000 mg PO DIRECTED PRN 08/19/19 FLUoxetine HCL [PROzac] 20 mg PO DAILY 09/27/19 Zzzquil 1 tab PO DAILY 08/21/20 Pregabalin 100 mg PO HS 04/23/22 Controlled Substance Measures - Controlled Substance Measures Is patient prescribed a controlled substance at discharge?: No
== END ==
LOC: PNWHC3 12:11
PROVIDERS: ATTEND Specialist
DX: M47.816 Spondylosis without myelopathy or radiculopathy, lumbar region (principal); M51.36 Other intervertebral disc degeneration, lumbar region; G89.29 Other chronic pain; Z79.01 Long term (current) use of anticoagulants; E11.9 Type 2 diabetes mellitus without complications; Z88.8 Allergy status to other drugs, medicaments and biological substances; Z79.4 Long term (current) use of insulin
CPT/HCPCS: 99211

== ENCOUNTER 2022-07-11 13:30 | Day surgery (SDC) | payer BC ==
[2022-07-11] MEDS ORDERED: LACTATED RINGERS 1,000 ML IV ONE (14:54)
[2022-07-11 14:57] VITALS: TEMP 96.9
[2022-07-11] MEDS ORDERED: fentaNYL (PF) 50 MCG/ML 2 ML AMP ONE (15:08)
[2022-07-11] MEDS ORDERED: methylPREDNISolone ACETATE 80 MG/ML 1 ML VIAL ONE (15:08)
[2022-07-11] MEDS ORDERED: MIDAZOLAM 2 MG/2 ML VIAL ONE (15:08)
[2022-07-11] MEDS ORDERED: IOPAMIDOL M200 10 ML VIAL ONE (15:08)
--- NOTE | 2022-07-11 15:27 | P.PCN ---
Date of Procedure: 07/11/22 Procedure(s) Performed: PREOPERATIVE DIAGNOSIS: 1- Lumbar Degenerative Disc Diseases 2-Lumbar spondylosis with Facet arthropathy without myelopathy. POSTOPERATIVE DIAGNOSIS: Same as preop diagnosis. PROCEDURE 1. Lumbar epidural steroid injection under fluoroscopic guidance at the L5-S1 level. (Fluoroscopy imaging was available in radiology department) 2. Lumbar epidurogram. ANESTHESIA: moderate sedation with intravenous Versed 1 mg ,and fentanyle 50 Mcg Sedation start time : 1513 Sedation end time : 1524 EBL: Minimal PROCEDURE INDICATION: The patient with low back pain and radiculitis symptoms unresponsive to conservative treatment. Fluoroscopy was used to optimize visualization of the needle placement and to maximize safety. PROCEDURE DESCRIPTION / TECHNIQUE: The patient was seen and identified in the preoperative area. Risks, benefits, complications including but not limited to infections ,bleeding ,allergic reaction to the medications ,nerve damage and not complete pain releife , and alternatives were discussed with the patient. The patient agreed to proceed with the procedure and signed the consent. IV was started, and vital signs were stable. Patient was taken to the OR and time out was completed. The patient was placed in the prone position on procedure table and a pillow was placed under the abdomen to reduce lumbar lordosis. The lumbosacral area was prepped and draped in the usual sterile fashion.ere closely monitored during the procedure. Conscious sedation was used during the procedure to decrease patients anxiety. Vital signs was monitered during the entire procedure. Using anterior-posterior fluoroscopy, the L5-S1 interlaminar space was identified and the skin over this site was marked and then infiltrated with 1% lidocaine subcutaneously. Subsequently, a 20-gauge Tuohy epidural needle was inserted and advanced toward the epidural space using the ``Loss of resistance technique and guided by AP and lateral fluoroscopy. The correct needle position in the epidural space was verified with the injection of 2 mL of the water soluble contrast dye Isovue 200 contrast and observing an excellent epidurogram with the epidural spread of the dye, after negative aspiration for blood and CSF and in the absence of paresthesias. Again after negative aspiration, a 6 ml mixture containing 80 mg of Depo-medrol ( Preservetive Free ), and 2 ml of preservative free Normal Saline, and 2 ml of preservative free lidocaine 1% solution was injected and a washout of epidurogram was seen. Needle was withdrawn intact, skin was cleansed, and bandages were applied. COMPLICATIONS: None DISPOSITION / PLANS: The patient was placed in a supine position and transferred to the recovery area in a stable condition for observation. There was no evidence of lower extremity motor or sensory deficit after the procedure. Patient was discharged from the recovery room after meeting discharge criteria. Home discharge instructions were given to the patient by the staff. The patient was reexamined prior to discharge. The patient will schedule a follow up in the clinic in 2-4 weeks. note= she was scheduled to have lumbar epidural steroid injection at the L4 May 13 done to enter the epidural space at L4-L5 was not successful ,for this reason I did the procedure at L5-S1
[2022-07-11] MEDS ORDERED: IV FLUID CONTINUATION 1,000 ML IV ONE (15:30)
[2022-07-11 15:35] VITALS: RESP 16
[2022-07-11 15:49] VITALS: BP 110/70; PULSE 55
--- NOTE | 2022-07-11 17:42 | FL ---
EXAMINATION TYPE: FL guided pain mgmt statistic DATE OF EXAM: 07/11/2022 FLUOROSCOPY Fluoroscopy time of 5 seconds was used during lumbar epidural injection. 1 image/s document/s the pr eber.
== END 2022-07-11 16:00 | disposition home or self-care (01) ==
LOC: ORPAIN 13:30
PROVIDERS: ATTEND Specialist
DX: M47.26 Other spondylosis with radiculopathy, lumbar region (principal); M51.16 Intervertebral disc disorders with radiculopathy, lumbar region; Z88.8 Allergy status to other drugs, medicaments and biological substances
CPT/HCPCS: 99152; 62323; J2250; J1040; J3010; Q9966

== ENCOUNTER → 2022-07-25 | Outpatient (CLI) | payer BC ==
[2022-07-25 13:47] VITALS: BP 134/77; PULSE 67; RESP 18; TEMP 98
--- NOTE | 2022-07-25 14:18 | P.PAINPG ---
Subjective Progress Note Date: 07/25/22 Principal diagnosis: Lumbar back pain, leg pain Ms. Sanchez is a 62-year-old pleasant female came to the [facility] pain clinic for follow-up visit after L4-L5 epidural steroid injection on 07/11/2022. She had good pain relief 40% for 2 weeks duration. Her pain radiating to lower extremity card better after epidural steroid injection. She denied difficulty falling sleep after last injection. Patient has ongoing pain for many years. Patient describes pain is aching, throbbing, constant type of pain. Pain is radiating to lower extremity causing numbness and tingling sensation sometimes. Patient rated pain levels are 6 out of 10 in severity. With the help of medications pain levels are 5-8 out of 10 in severity. Activities making pain worse. Medications, resting, intervention procedure helping in relieving patient's pain. Patient pain some days better than others. Overall activities decreased secondary to pain. Because of the pain sometimes patient is feeling lack of sleep, interest, and energy. Denied any side effects with the medications. Denied any bowel or bladder problems at this time. Patient is not using any aids for walking support. Patient denies any suicidal or homicidal ideations intent or plan. Patient denies any auditory or visual hallucinations. Patient denied any red flag symptoms related to pain. Objective - Vital Signs Vital signs: Vital Signs Temp 98.0 F 07/25/22 13:38 Pulse 67 07/25/22 13:38 Resp 18 07/25/22 13:38 BP 134/77 07/25/22 13:38 Pulse Ox 97 07/25/22 13:38 FiO2 Intake & Output 07/24/22 07/25/22 07/25/22 18:59 06:59 18:59 Weight 97.522 kg - Exam General: Well-developed, well-nourished, no acute distress HEENT: Normocephalic, and atraumatic Neck: Supple, no neck swelling Psychiatric: Appropriate mood, and affect [employer] ENGINEER: No focal neurological deficits Musculoskeletal: Upper extremity: Normal strength, and range of motion. Sensation grossly intact Lower extremity: Normal strength, and decreased range of motion secondary to pain Lumbar spine: Paravertebral tenderness: Negative Lumbar facet load test : positive Sacroiliac joint tenderness: Negative Straight leg raising test: negative - Constitutional Constitutional Comment(s): 12 point review of symptoms negative except as mentioned in the history of present illness Assessment and Plan Assessment: Lumbar spondylosis without myelopathy Myofascial pain syndrome, and chronic pain syndrome Lumbar radiculopathy Cervical spondylosis without myelopathy Plan: #1 Diagnoses, prognosis, and multiple treatment options including but not limited to physical therapy, interventional therapy, adjunct medication therapy, narcotic medication, and surgical options were discussed with the patient. And all questions were answered to the patient's satisfaction. #2 treatment plan agreement : Patient was thoroughly discussed regarding the treatment options, alternatives, and importance of exercises as tolerated. Patient clearly understood. #3 Patient was counseled on importance of regular exercise. Including maite chi, aerobic exercises as tolerated. Which helps for chronic pain, and overall well- being. . #4 investigations: MAPS- reviewed , urine drug test- none #5 diagnostic tests: MRI of the lumbar spine done on 06/25/2022 showed L2-L3: Mild disc desiccation, hypertrophic changes. No disc herniation or spinal canal stenosis. No foraminal approach L3-L4: Mild to moderate degenerative disc disease with broad based disc bulge. Minimal anterior listhesis with more advanced facet arthropathy. Ligamentum flavum hypertrophic. Nose canal stenosis. Neural foramina are maintained. L4-L5: There is a disc desiccation with advanced facet arthropathy, and mild circumferential disc bulging. Neural foramina remained patent with very minimal encroachment. No canal stenosis. L5-S1: There is a facet arthropathy with no disc herniation or canal stenosis. No foraminal encroachment.. There is a slight anterolisthesis of L3 on L4. #6 consultation : None # 7 interventional procedures: Bilateral lumbar L4-L5, L5-S1 medial branch block #1 . Procedure, complications, alternatives discussed with the patient. #8 medications #1 Tylenol, and Motrin as needed Medication side effects, complications, long-term consequences discussed with the patient. Patient recommended to contact the pain clinic if noticed any issues with given medications. #9 morphine milligrams equivalents dose ( MME) per day: 0 from the pain clinic # 10 TENS unit's, and percussion massage device #11 disposition: scheduled to follow up with pain clinic in 4 weeks duration. Time with Patient: Less than 30 PQRS Measure Charge Sheet Measure #130: Documentation of Current Meds in Medical Chart: Patient's medications documented in chart Measure #226: Tobacco Use: Screen & Cessation Intervention: Pt not a tobacco user Measure #111: Pneumonia Vaccination: Pneumococcal vaccine NOT administered or previously given Measure #47: Advance Care Plan: Advance care planning discussed & documented, pt chose/unable to give Measure #412: Opioid Treatment Agreement: No documentation of signed opioid treatment agreement Measure #408: Opioid Therapy Follow-up Evaluation: Patient had NO f/u eval minimum every 3 months during opioid therapy Measure #317: Preventitive Care & Scrn High Bld Press & F/U: Pre-hypertensive or hypertensive BP documented, pt will f/u with PCP Measure #128: Body Mass Index (BMI) Screening & Follow-up: BMI documented ABOVE normal parameters - f/u documented Measure #131: Pain Assessment & Follow-up: Pain positive & plan documented Measure #431: Unhealthy Alcohol Use Preventative Care & Scrn: Patient not identified as an unhealthy alcohol user Mode of Arrival: Ambulatory - Pain Location Bilateral Lower Back Non-Pharmacological Interventions: Elevation, Heat, Ice, Inactivity, Massage, Physical Therapy, Position/Reposition, Sitting Pharmacological Interventions: Epidural, PRN Medication, Scheduled Medication, Topical Medication PQRS Narrative: Smoking Status Never smoker Blood Pressure 134/77 Pain Intensity [Bilateral 4 Lower Back] Scale Used Numeric (1 - 10) Hx Alcohol Use (MH) Yes: SOCIAL Home Medications: Ambulatory Orders Calcium 1200mg-Vitamin D3 1000iu 1 tab PO DAILY 05/01/16 Cholecalciferol [Vitamin D3] 4,000 unit PO DAILY 05/01/16 Multivitamins, Thera [Multivitamin] 1 tab PO DAILY 05/01/16 Oxybutynin Chloride [Oxybutynin Chloride ER] 10 mg PO DAILY 05/01/16 Acetaminophen [Tylenol] 325 - 650 mg PO Q4H PRN 08/19/19 Naproxen Sodium [Aleve] 220 mg PO Q6H PRN 08/19/19 Niacin 250 mg PO DAILY 08/19/19 SUMAtriptan succinate [Imitrex] 100 mg PO DIRECTED PRN 08/19/19 buPROPion HCL [buPROPion HCL SR] 150 mg PO DAILY 08/19/19 valACYclovir HCL [Valacyclovir] 1,000 mg PO DIRECTED PRN 08/19/19 FLUoxetine HCL [PROzac] 20 mg PO DAILY 02/24/20 Zzzquil 1 tab PO DAILY 08/21/20 Pregabalin 100 mg PO HS 04/23/22 Controlled Substance Measures - Controlled Substance Measures Is patient prescribed a controlled substance at discharge?: No
== END ==
LOC: PNWHC3 13:17
DX: M47.26 Other spondylosis with radiculopathy, lumbar region (principal); M47.812 Spondylosis without myelopathy or radiculopathy, cervical region; G89.29 Other chronic pain; M79.10 Myalgia, unspecified site; Z88.8 Allergy status to other drugs, medicaments and biological substances
CPT/HCPCS: 99211

== ENCOUNTER → 2022-08-22 | Outpatient (CLI) | payer BC ==
--- NOTE | 2022-08-22 09:19 | US ---
EXAMINATION TYPE: US pelvis complete transvag DATE OF EXAM: 08/22/2022 COMPARISON: NONE CLINICAL HISTORY: R19.00 INTRA-ABD AND PELVIC SWELLING, MASS AND LUM. Cyst seen on MRI TECHNIQUE: Transvaginal (TV) and Transabdominal (TA) . Transvaginal sonographic images were medical ly necessary to better assess the following anatomy: Uterus and ovaries. EXAM MEASUREMENTS: Uterus: 7.6 x 3.7 x 5.1 cm Endometrial Stripe: .3 cm Left Ovary: 4.2 x 3.2 x 3.5 cm 1. Uterus: Retroverted Heterogenous calcifications multiple fibroids seen largest 2.8 cm. 2. Endometrium: wnl 3. Right Ovary: Obscured by overlying bowel gas 4. Left Ovary: Simple Cystic area left ovary measures 2.6 x 3.8 x 2.8 cm. This should be followed t o clearing. Neoplasm is not excluded on the basis of this exam. 5. Bilateral Adnexa: wnl 6. Posterior cul-de-sac: wnl IMPRESSION: 1. Simple appearing left ovarian cyst. Follow-up exam in 6 weeks is recommended for resolution.
--- NOTE | 2022-08-22 09:20 | US ---
EXAMINATION TYPE: US abdomen complete DATE OF EXAM: 08/22/2022 COMPARISON: NONE CLINICAL HISTORY: R19.00 INTRA-ABD AND PELVIC SWELLING, MASS AND LUM. Cyst seen on MRI exam limitatio ns due to bowel gas and body habitus. TECHNIQUE: Multiple sonographic images of the abdomen are obtained. FINDINGS: EXAM MEASUREMENTS: Liver Length: 15.3 cm Gallbladder Wall: .3 cm CBD: .4 cm Spleen: 10.6 cm Right Kidney: 9.9 x 4.5 x 4.1 cm Left Kidney: 11.9 x 6.2 x 5.1 cm OPERATIONS AND MAINTENANCE SPECIALIST NOTES: Pancreas: Obscured by bowel gas Liver: Increased attenuation Gallbladder: No stones seen Evidence for sonographic Foster's sign: No CBD: wnl Spleen: wnl Right Kidney: No hydronephrosis or masses seen Left Kidney: No hydronephrosis or masses seen Upper IVC: wnl Abd Aorta: wnl IMPRESSION: 1. No acute abnormality abdomen ultrasound.
== END | disposition home or self-care (01) ==
LOC: RADUSWWP 07:34
PROVIDERS: ATTEND Family Medicine
DX: N83.202 Unspecified ovarian cyst, left side (principal); R19.00 Intra-abdominal and pelvic swelling, mass and lump, unspecified site
CPT/HCPCS: 76700; 76830; 76856

== ENCOUNTER → 2022-10-17 | Outpatient (CLI) | payer BC ==
[2022-10-17 15:14] VITALS: BP 115/76; PULSE 96; RESP 18; TEMP 98.4
--- NOTE | 2022-10-17 15:54 | P.PAINPG ---
PQRS Measure Charge Sheet Comment: A 62 yr old female with a history of severe and chronic LBP secondary to lumbar DDD and spondylosis with facet arthropathy without myelopathy presents today for evaluation s/p BL facet block of the medial branches L4-L5, L5-S1 #1. Pt states she experienced 85 % pain relief x 1 days s/p procedure. Pain level is provoked at 10 /10 in intensity, constant, localized in the lumbar spine, achy in character w shooting towards the BLEs. Pain is provoked by taking steps from a standing position. Pain is alleviated with massage therapy monthly x 1 yr which she is currently in, PT in 2019, heat, ice, medications (Lyrica, Cymbalta, Celebrex, Aleve), topicals, sitting, repositioning and rest. Interventional pain procedures completed include BL MBB L3-L5 x1 Patient is currently on Lyrica, Cymbalta, Celebrex, Aleve Patient denies any side effects of the medication(s), denies excessive drowsiness or sleepiness, denies suicidal ideation and reports that the current pain medication is helping to control the pain and improve activities of daily living. Patient denies any motor or sensory deficits. Patient denies any fever or night sweats, denies any change in the bowel movements or urination. Physical Examination: -Constitutional: Cooperative. Not in acute distress . - Neurologic: Cranial nerve II to XII intact. No focal neurological deficits. - Psychatric: Alert & oriented x 3. Matching mood & appropriate affect. Judgment and insight intact. - Musculoskeletal: Cervical spine: Muscle bulk/ tone/ strength in the bilateral upper extremities normal Vertebral body tenderness to palpation over Spurling test positive Distraction test positive Facet loading test positive TTP Thoracic spine Muscle bulk / tone/ strength in the bilateral paraspinal muscles normal Vertebral body tender to palpation over Facet loading test positive TTP Lumbar spine: Motor bulk/ tone/ strength lower extremities , thigh and legs : 5/5 Deep tendon reflexes : Normal Knee Jerk. Normal Ankle Jerk . Vertebral body tenderness to palpation over Lumbar Facet Loading Test positive TTP over BL L4-L5, L5-S1 facets Straight Leg Raise: positive at 30 degrees right side/ left side Gaenslen's Test positive Sacral spine : Severe tenderness over the Sacroiliac joint: right side / left side Range of motion: Flexion of the lumbar spine <60 degrees Range of motion: Extension of the lumbar spine <20 degrees Gaenslen's Test positive right side / left side Ruby test: positive right side / left side Thigh Thrust Test positive right side / left side Sacral Thrust Test positive right side / left side Assessment and plan: Chronic LBP secondary to lumbar DDD, spondylosis with facet arthropathy without myelopathy Recommendation of BL facet block of the medial branches L4-L5, L5-S1 #2. May need a series of injections, up until RFA, for optimal pain relief. Risks, benefits of procedure discussed and pt verbalized understanding. Admits to anticoagulant use or medical history of diabetes. Protocol for discontinuation/ continuation of medications vern procedure discussed. All questions answered. I have spent less than 30 minutes on patient care today. Dr Persaud was available by phone for the evaluation of this patient. The time was used to review the medical records including relevant urine studies and Prescription history (MAPs), review of the available imaging, evaluation and examination of the patient, coordination of care with the medical staff and if applicable referring physicians, as well as creation of the medical record PQRS Narrative: Smoking Status Never smoker Hx Alcohol Use (MH) Yes: SOCIAL Home Medications: Ambulatory Orders Calcium 1200mg-Vitamin D3 1000iu 1 tab PO DAILY 05/01/16 Cholecalciferol [Vitamin D3] 4,000 unit PO DAILY 05/01/16 Multivitamins, Thera [Multivitamin] 1 tab PO DAILY 05/01/16 Oxybutynin Chloride [Oxybutynin Chloride ER] 10 mg PO DAILY 05/01/16 Niacin 500 mg PO DAILY 08/19/19 SUMAtriptan succinate [Imitrex] 100 mg PO DIRECTED PRN 08/19/19 valACYclovir HCL [Valacyclovir] 1,000 mg PO DIRECTED PRN 08/19/19 FLUoxetine HCL [PROzac] 20 mg PO DAILY 09/27/19 Pregabalin 100 mg PO HS 04/23/22 Celecoxib [CeleBREX] 200 mg PO DAILY 10/01/22 DULoxetine HCL [Cymbalta] 30 mg PO BID 10/01/22 Controlled Substance Measures - Controlled Substance Measures Is patient prescribed a controlled substance at discharge?: No
== END ==
LOC: PNWHC3 14:12
PROVIDERS: ATTEND Specialist
DX: M51.36 Other intervertebral disc degeneration, lumbar region (principal); M47.816 Spondylosis without myelopathy or radiculopathy, lumbar region; G89.29 Other chronic pain; Z88.1 Allergy status to other antibiotic agents
CPT/HCPCS: 99211

== ENCOUNTER 2022-11-08 10:44 | Day surgery (SDC) | payer BC ==
[2022-11-07 09:57] VITALS: BMI 34.7
[2022-11-08 11:07] VITALS: TEMP 97.6
[2022-11-08] MEDS ORDERED: methylPREDNISolone ACETATE 40 MG/ML 1 ML VIAL ONE (11:25)
[2022-11-08] MEDS ORDERED: ROPIVACAINE 5 MG/ML 20 ML AMPULE ONE (11:25)
[2022-11-08] MEDS ORDERED: MIDAZOLAM 2 MG/2 ML VIAL ONE (11:25)
[2022-11-08] MEDS ORDERED: fentaNYL (PF) 50 MCG/ML 2 ML AMP ONE (11:25)
--- NOTE | 2022-11-08 11:41 | P.PCN ---
Date of Procedure: 11/08/22 Procedure(s) Performed: PREOPERATIVE DIAGNOSIS : 1- Lumbar spondylosis with Facet Arthropathy without myelopathy . 2- Lumber degenerative disc disease POSTOPERATIVE DIAGNOSIS: 1- Lumbar spondylosis with Facet Arthropathy without myelopathy . 2- Lumber degenerative disc disease PROCEDURE: Diagnostic bilateral L3 , L4 , and L5 medial branch block under fluoroscopy guidance(fluoroscopy images available in the radiology Department ) ( To target the facet joint between bilateral L4-5 , and L5-S1 )# 2nd ANESTHESIA:, Monitored anesthesia care as per anesthesia department. EBL: Minimal COMPLICATION: None PROCEDURE INDICATION: Chronic low back pain secondary to Facet arthropathy unresponsive to conservative treatment. PROCEDURE DESCRIPTION: the patient was seen and identified in the preop holding area , risks and benefits and possible complications of the procedure and alternative were discussed with the patient, and the patient agreed to proceed with the procedure and signed the consent and vital signs monitored during the procedure and fluoroscopy was used to maximize the benefit and accuracy of the needle placement, and sedation was given to decrease patient anxiety, patient was taken to the procedure room and placed in prone position vital signs monitored in the back prepped with chlorhexidine X3 then under strict sterile technique using a right oblique fluoroscopy ,the junction of the transverse process and the superior articulating process of the right L3 , L4 , and L5 vertebra which corresponding to the fluoroscopy image of the eye of the Minor dog on the block side for the medial branches and subsequently , after local infiltration of skin and subcu tissuies with Ropivacaine 0.5 % , one mL at each level ,then 22-gauge Quincke-type needles , 3 needle was used , each one of them placed at the junction of the base of the transverse process and the superior articular process at the appropriate level, and the needle was advanced until the periosteum contacted, needle placement confirmed with AP oblique and lateral view and after appropriate needle placement confirmed, and after negative aspiration for heme and CSF and there was no paresthesia 1-1/2 mL of Ropivacaine 0.5% mixed with 20 mg Depo-Medrol , then half mL injected at each level after negative aspiration the needle subsequently removed and the same procedure repeated for the left side at left side at L3 , L4 and L5 levels. At the end of the procedure and the needles removed and a bandage applied after the skin was cleaned the cleaning solution patient taken to recovery room in stable condition and monitors in the recovery room for 20-30 minutes and discharged home in stable condition after discharge criteria met and patient will follow up with the pain clinic in 2-4 weeks
[2022-11-08] MEDS ORDERED: IV FLUID CONTINUATION 800 ML IV ONE (11:45)
[2022-11-08 11:47] VITALS: RESP 18
--- NOTE | 2022-11-08 11:59 | FL ---
Intraoperative/procedural fluoroscopic services were provided for bilateral lumbar facet block. Total fluoroscopy time is 11 seconds with a total of 4 submitted images to PACS. Total DAP 0.02150. Please see the operative note for further details.
[2022-11-08 12:00] VITALS: BP 108/74; PULSE 65
== END 2022-11-08 12:09 | disposition home or self-care (01) ==
LOC: ORPAIN 10:44
PROVIDERS: ATTEND Specialist
DX: M51.36 Other intervertebral disc degeneration, lumbar region (principal); M47.816 Spondylosis without myelopathy or radiculopathy, lumbar region; G89.29 Other chronic pain; F12.90 Cannabis use, unspecified, uncomplicated; F39 Unspecified mood [affective] disorder; Z79.899 Other long term (current) drug therapy; Z88.8 Allergy status to other drugs, medicaments and biological substances
CPT/HCPCS: 64493; 64494; J2250; J1030; J3010; J2795

== ENCOUNTER → 2022-12-02 | Outpatient (CLI) | payer BC ==
[2022-12-02 14:55] VITALS: BP 132/81; PULSE 85; RESP 18; TEMP 97.9
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
== END ==
LOC: PNWHC3 13:13
PROVIDERS: ATTEND Specialist
DX: M51.37 Other intervertebral disc degeneration, lumbosacral region (principal); M47.816 Spondylosis without myelopathy or radiculopathy, lumbar region; G89.29 Other chronic pain; Z88.8 Allergy status to other drugs, medicaments and biological substances
CPT/HCPCS: 99211

== ENCOUNTER 2023-01-02 11:13 | Day surgery (SDC) | payer BC ==
[2023-01-01 12:05] VITALS: BMI 34.7
[2023-01-02 11:29] VITALS: RESP 16; TEMP 97.8
[2023-01-02] MEDS ORDERED: fentaNYL (PF) 50 MCG/ML 2 ML AMP ONE (11:41)
[2023-01-02] MEDS ORDERED: methylPREDNISolone ACETATE 40 MG/ML 1 ML VIAL ONE (11:41)
[2023-01-02] MEDS ORDERED: MIDAZOLAM 2 MG/2 ML VIAL ONE (11:41)
[2023-01-02] MEDS ORDERED: ROPIVACAINE 5 MG/ML 20 ML AMPULE ONE (11:41)
--- NOTE | 2023-01-02 12:11 | P.PCN ---
Date of Procedure: 01/02/23 Procedure(s) Performed: PREOPERATIVE DIAGNOSIS: 1-Lumbar Spondylosis with Facet Arthropathy without myelopathy. 2- Lumber degenerative disc disease. POSTOPERATIVE DIAGNOSIS: 1- Lumbar Spondylosis with Facet Arthropathy without myelopathy. 2- Lumber degenerative disc disease. PROCEDURES : Bilateral Radiofrequency thermocoagulation, L3 , L4 , and L5 medial branch, with fluoroscopic guidance (fluoroscopy images available in the radiology department) ( to denervate the facet joint at bilateral L4-5 ,and L5-S1 levels ). ANESTHESIA: Moderate sedation with intravenous versed 2 mg and fentaneyl 50 mcg, and local infiltration with Ropivacaine 0.5 % . Sedation the started at 1141, end at 1209 EBL: Minimal PROCEDURE INDICATION: The patient with low back pain secondary to lumbar facet arthropathy who had more than 80% relief of her pain with previous diagnostic lumbar medial branch block with bupivacaine. PROCEDURE DESCRIPTION / TECHNIQUE: The patient was seen and identified in the preoperative area. Risks, benefits, complications, including but not limited to risk of infection ,bleeding , allergic reactions to the medications and no complete pain releife , and alternatives were discussed with the patient, the patient agreed to proceed with the procedure and signed the consent. IV was started. Vital signs remained stable throughout the procedure. Patient was taken to the OR and time out was completed. The patient was placed in the prone position on the procedure table. The lumber area was prepped and draped in the usual sterile fashion. . Vital signs were closely monitored during the procedure .IV sedation was used during the procedure to decrease patients anxiety. Using AP and then oblique fluoroscopy, the ``eye of the Minor dog corresponding to the connection between the superior and transverse articular processes of right L3, L4, and L5 were identified, marked, and localized with 1% lidocaine. Subsequently, a [id number] radiofrequency cannula with a 10- mm active tip was advanced guided by fluoroscopy to each of the``eyes of the Minor dog at right L3, L4, and L5. Each site then underwent sensory testing at 50 Hz and 0 to 1 volt and motor testing at 2.5 Hz and 0 to 3 volt with local stimulation, but no radicular symptoms down the legs. Thereafter each sites underwent radiofrequency thermocoagulation at 80 degrees celsius for 90 seconds after injecting 0.5 ml of PF Ropivacaine 1ml, then after the thermocoagulation done , 1 ml of the block solution containing Depo-Medrol 20 mg and 3 ml of Ropivacaine 0.5% was injected at the right L3 , L4 , and L5 , levels after negative aspiration of CSF and blood and with no paresthesias. Cannulas were retracted while injecting lidocaine 1% until the needle is out. The same procedure was repeated at the level of Left L3, L4, and L5 levels. At the end of the procedure, the skin was cleansed and bandages were applied. COMPLICATIONS: No acute complications. DISPOSITION / PLANS: The patient was placed in a supine position and transferred to the recovery area in a stable condition for observation and was discharged from the recovery room after meeting discharge criteria. Home discharge instructions given to the patient by the staff. The patient was reexamined prior to discharge. The patient will schedule a follow up in the clinic in 2-4 weeks.
[2023-01-02] MEDS ORDERED: LACTATED RINGERS 1,000 ML IV ONE (12:15)
[2023-01-02 12:45] VITALS: BP 115/75; PULSE 62
--- NOTE | 2023-01-02 13:00 | FL ---
Intraoperative/procedural fluoroscopic services were provided. Total fluoroscopy time is 12.3 seconds with a total of 6 submitted images to PACS. Please see the operative/procedural note for further det ails. DAP: [id number] [id number]
== END 2023-01-02 12:58 | disposition home or self-care (01) ==
LOC: ORPAIN 11:13
PROVIDERS: ATTEND Specialist
DX: M51.36 Other intervertebral disc degeneration, lumbar region (principal); M47.816 Spondylosis without myelopathy or radiculopathy, lumbar region; Z88.9 Allergy status to unspecified drugs, medicaments and biological substances
CPT/HCPCS: 64635; 64636 ×2; 99152; 99153; J2250; J1030; J3010; J2795

== ENCOUNTER → 2023-01-23 | Outpatient (CLI) | payer BC ==
[2023-01-23 13:46] VITALS: BP 133/83; PULSE 79; RESP 16; TEMP 97.5
--- NOTE | 2023-01-23 15:04 | P.PAINPG ---
PQRS Measure Charge Sheet Comment: A 62 yr old female with a history of severe and chronic LBP secondary to lumbar DDD and spondylosis with facet arthropathy without myelopathy presents today for evaluation s/p BL RFA L4-L5, L5-S1. Pt states she experienced 75 % pain relief x 5 days s/p procedure. Pain level is provoked at 8/10 in intensity , intermittent, localized in the lumbar spine, achy in character w shooting towards the BL hips and LEs. Pain is provoked by climbing stairs, walking for periods of 15 min or more. Pain is alleviated with PT in without relief, medications, ice, reclining and rest. Interventional pain procedures completed include BL RFA L3-L5 (Jan 2023), ESIs C6-C7 x1, L4-L5 x1 Patient is currently on Lyrica, Naproxen, Celebrex, Cymbalta Patient denies any side effects of the medication(s), denies excessive drowsiness or sleepiness, denies suicidal ideation and reports that the current pain medication is helping to control the pain and improve activities of daily living. Patient denies any motor or sensory deficits. Patient denies any fever or night sweats, denies any change in the bowel movements or urination. Physical Examination: -Constitutional: Cooperative. Not in acute distress . - Neurologic: Cranial nerve II to XII intact. No focal neurological deficits. - Psychatric: Alert & oriented x 3. Matching mood & appropriate affect. Judgment and insight intact. - Musculoskeletal: Cervical spine: Muscle bulk/ tone/ strength in the bilateral upper extremities normal Vertebral body tenderness to palpation over Spurling test positive Distraction test positive Facet loading test positive TTP Thoracic spine Muscle bulk / tone/ strength in the bilateral paraspinal muscles normal Vertebral body tender to palpation over Facet loading test positive TTP Lumbar spine: Motor bulk/ tone/ strength lower extremities , thigh and legs : 5/5 Deep tendon reflexes : Normal Knee Jerk. Normal Ankle Jerk . Vertebral body tenderness to palpation over L3, L4 L5 Nguyen Test positive Lumbar Facet Loading Test positive Straight Leg Raise: positive at 30 degrees right side/ left side Gaenslen's Test positive Sacral spine : Severe tenderness over the Sacroiliac joint: right side / left side Range of motion: Flexion of the lumbar spine <60 degrees Range of motion: Extension of the lumbar spine <20 degrees Gaenslen's Test positive right side / left side Ruby test: positive right side / left side Thigh Thrust Test positive right side / left side Sacral Thrust Test positive right side / left side Assessment and plan: Chronic LBP secondary to lumbar DDD, spondylosis with facet arthropathy without myelopathy Recommendation of Behavioral Health Eval for SCS Trial. Video viewed but pt would like to get another opinion before moving forward. Risks, benefits of procedure discussed and pt verbalized understanding. Admits to anticoagulant use or medical history of diabetes. Protocol for discontinuation/ continuation of medications vern procedure discussed. Minimal anesthesia provided, if clinically indicated, consisting of Versed and Fentanyl. All questions answered. I have spent less than 30 minutes on patient care today. Dr Persaud was available by phone for the evaluation of this patient. The time was used to review the medical records including relevant urine studies and Prescription history (MAPs), review of the available imaging, evaluation and examination of the patient, coordination of care with the medical staff and if applicable referring physicians, as well as creation of the medical record PQRS Narrative: Smoking Status Never smoker Hx Alcohol Use (MH) Yes: SOCIAL Home Medications: Ambulatory Orders Calcium 1200mg-Vitamin D3 1000iu 1 tab PO DAILY 05/01/16 Cholecalciferol [Vitamin D3] 4,000 unit PO DAILY 05/01/16 Multivitamins, Thera [Multivitamin] 1 tab PO DAILY 05/01/16 Oxybutynin Chloride [Oxybutynin Chloride ER] 10 mg PO DAILY 05/01/16 Niacin 500 mg PO DAILY 08/19/19 valACYclovir HCL [Valacyclovir] 1,000 mg PO DIRECTED PRN 08/19/19 FLUoxetine HCL [PROzac] 20 mg PO DAILY 09/27/19 Pregabalin 100 mg PO HS 04/23/22 Celecoxib [CeleBREX] 200 mg PO DAILY 10/01/22 DULoxetine HCL [Cymbalta] 30 mg PO BID 10/01/22 Controlled Substance Measures - Controlled Substance Measures Is patient prescribed a controlled substance at discharge?: No
== END ==
LOC: PNWHC3 13:10
PROVIDERS: ATTEND Specialist
DX: M51.16 Intervertebral disc disorders with radiculopathy, lumbar region (principal); M47.26 Other spondylosis with radiculopathy, lumbar region; G89.4 Chronic pain syndrome; Z88.8 Allergy status to other drugs, medicaments and biological substances
CPT/HCPCS: 99211

== ENCOUNTER → 2023-03-04 | Outpatient (CLI) | payer BC ==
--- NOTE | 2023-03-05 07:46 | MM ---
Reason for Exam: Screening (asymptomatic). Last mammogram was performed 1 year(s) and 3 month(s) ago. Patient History: Menarche at age 14. First Full-Term at age 32. Late child-bearing (after 30). Postmenopausal. Patient used Hormonal Contraceptives for 20 years. 12/16/1996, Excisional Biopsy on the Left side. 04/13/2013, Benign Excisional Biopsy on the right side. Risk Values: Arcelia 5 year model risk: 3.1%. NCI Lifetime model risk: 14.2%. Prior Study Comparison: 08/19/2019 Bilateral Screening Mammogram, [facility]. 10/30/2020 Bilateral Screening Mammogram, [facility]. 12/20/2021 Bilateral MG 3D screening mammo w/cad, [facility]. Tissue Density: The breast tissue is heterogeneously dense. This may lower the sensitivity of mammography. Findings: Analyzed By CAD. There is no suspicious group of microcalcifications or new suspicious mass in either breast. Stable subtle distortion upper aspect of the left breast from prior excision. Stable small chronic nodularity within the right breast. Benign-appearing calcifications within both breasts. Overall Assessment: Benign, BI-RAD 2 Management: Screening Mammogram of both breasts in 1 year. A clinical breast exam by your physician is recommended on an annual basis and results should be correlated with mammographic findings. Note on Arcelia scores and lifetime risk: 1. A Arcelia score greater than 3% is considered moderate risk. If this is the case, consider specialist referral to assess eligibility for a risk reducing agent. If overall lifetime risk for the development of breast cancer is 20% or higher, the patient may qualify for future screening with alternating mammogram and breast MRI. Electronically signed and approved by: Wesley Dominguez D.O.
== END | disposition home or self-care (01) ==
LOC: RADMAMWWP 13:55
PROVIDERS: ATTEND Family Medicine
DX: Z12.31 Encounter for screening mammogram for malignant neoplasm of breast (principal); Z78.0 Asymptomatic menopausal state
CPT/HCPCS: 77063; 77067

== ENCOUNTER → 2024-03-05 | Outpatient (CLI) | payer BC ==
--- NOTE | 2024-03-31 12:25 | MM ---
Reason for Exam: Screening (asymptomatic). Last screening mammogram was performed 12 month(s) ago. Patient History: Menarche at age 14. First Full-Term at age 32. Late child-bearing (after 30). Postmenopausal. Patient used Hormonal Contraceptives for 20 years. 12/16/1996, Excisional Biopsy on the Left side. 04/13/2013, Benign Excisional Biopsy on the right side. Risk Values: Arcelia 5 year model risk: 3.2%. NCI Lifetime model risk: 13.8%. Prior Study Comparison: 10/30/2020 Bilateral Screening Mammogram, [facility]. 12/20/2021 Bilateral MG 3D screening mammo w/cad, [facility]. 03/04/2023 Bilateral MG 3D screening mammo w/cad, [facility]. Tissue Density: There are scattered areas of fibroglandular density. Findings: Analyzed By CAD. Bilateral breast biopsy clips. Right breast: There is no suspicious group of microcalcifications or new suspicious mass. Benign-appearing calcifications right breast. Left breast: There is no suspicious group of microcalcifications or new suspicious mass. Benign-appearing calcifications left breast. Overall Assessment: Negative, BI-RAD 1 Management: Screening Mammogram of both breasts in [address] [facility] will attempt to contact patient to return for supplemental views and ultrasound if indicated. Patient should continue monthly self-breast exams. A clinical breast exam by your physician is recommended on an annual basis. This exam should not preclude additional follow-up of suspicious palpable abnormalities. Note on Arcelia scores and lifetime risk: 1. A Arcelia score greater than 3% is considered moderate risk. If this is the case, consider specialist referral to assess eligibility for a risk reducing agent. 2. If overall lifetime risk for the development of breast cancer is 20% or higher, the patient may qualify for future screening with alternating mammogram and breast MRI. Electronically signed and approved by: Dhruv Spence DO
== END | disposition home or self-care (01) ==
LOC: RADMAMWWP 15:12
PROVIDERS: ATTEND Family Medicine
DX: Z12.31 Encounter for screening mammogram for malignant neoplasm of breast (principal); R92.323 Mammographic fibroglandular density, bilateral breasts; Z78.0 Asymptomatic menopausal state; Z92.0 Personal history of contraception
CPT/HCPCS: 77063; 77067

== ENCOUNTER 2024-04-16 11:16 | Day surgery (SDC) | payer BC ==
[2024-04-14 08:44] VITALS: BMI 35.5
[2024-04-16] MEDS: IV FLUID CONTINUATION 1,000 ML IV ONE (11:59)
[2024-04-16 12:10] VITALS: TEMP 98.4
[2024-04-16] MEDS: LACTATED RINGERS 1,000 ML IV SCH (12:19)
[2024-04-16] MEDS ORDERED: PROPOFOL 10 MG/ML 20 ML VIAL IV ONE (12:59)
--- NOTE | 2024-04-16 13:21 | P.PCN ---
Date of Procedure: 04/16/24 Procedure(s) Performed: BRIEF HISTORY: Patient is a 64-year-old pleasant white female scheduled for an elective colonoscopy as a part of evaluation by history of colon polyps. Last colonoscopy was 3 years ago PROCEDURE PERFORMED: Colonoscopy with snare polypectomy. PREOPERATIVE DIAGNOSIS: History of colon polyps. IV sedation per Anesthesia. PROCEDURE: After informed consent was obtained, the patient, was brought into the endoscopy unit. IV sedation was administered by Anesthesia under continuous monitoring. Digital rectal examination was normal. Initially the Olympus CF-160 flexible video colonoscope was then inserted in the rectum, gradually advanced into the cecum without any difficulty. Careful examination was performed as the scope was gradually being withdrawn. Ileocecal valve and the appendiceal orifice were visualized and appeared normal. Prep was excellent. Mucosa of the cecum, ascending colon, transverse colon, appeared normal. The descending colon there was a 7 mm flat polyp that was removed by cold snare polypectomy. Rest of the descending colon, sigmoid colon, and rectum appeared normal. Retroflexion was performed in the rectum and no lesions were seen. The patient tolerated the procedure well. IMPRESSION: 7 mm descending colon polyp status post cold snare polypectomy Rest of the colon appeared normal RECOMMENDATIONS: Findings of this examination were discussed with the patient as well as his family. She was advised to follow-up with biopsy results. The biopsy reveals adenoma she can have repeat colonoscopy in 5 years.
[2024-04-16 13:41] VITALS: BP 109/73; PULSE 68; RESP 16
== END 2024-04-16 14:11 | disposition home or self-care (01) ==
LOC: ORWHC2ENDO 11:16
PROVIDERS: ATTEND Internal Medicine Gastroenterology
DX: K63.5 Polyp of colon (principal); M54.50 Low back pain, unspecified; Z88.2 Allergy status to sulfonamides; Z87.19 Personal history of other diseases of the digestive system; Z79.899 Other long term (current) drug therapy
CPT/HCPCS: 88305; 45385; J2704